=== PATIENT | female | born 1985 | race Caucasian/White ===

== ENCOUNTER → 2019-04-17 21:27 | Observation (INO) ==
[2019-04-17 20:56] LABS: Bilirubin,Urine Negative (Negative); Blood,Urine Negative (Negative); Clarity,Urine Cloudy (Clear); Color,Urine Yellow (Yellow); Glucose,Urine (UA) Normal (Normal); Ketones,Urine Negative (Negative); Leukocyte Esterase,Urine Small (Negative); Nitrite,Urine Negative (Negative); PH,Urine 7.5 pH Units (5.0-8.0); Protein,Urine Negative (Neg-Trace); Specific Gravity,Urine 1.012 (1.010-1.025); Urobilinogen,Urine Normal (Normal)
--- NOTE | 2019-04-17 20:57 | Discharge Summary ---
Date of Encounter: 04/17/19 Time of Encounter: 20:59 - Discharge Diagnosis (1) 27 weeks gestation of Priority: Primary Status: Acute Comments: Admit to observation for complaint of vaginal leakage. (2) Vaginal discharge during Priority: Secondary Status: Acute Comments: Sterile speculum exam completed Vaginosis panel sent to lab [facility] collected Qualifiers: Trimester: third trimester Qualified Code(s): O26.893 - Other specified related conditions, third trimester; N89.8 - Other specified noninflammatory disorders of vagina - Discharge Medications Prescriptions: No Action Mv-Mn/Iron/FA/Herbal/Digestive [ One Tablet] 1 each PO DAILY Home Medications: Mv-Mn/Iron/FA/Herbal/Digestive [ One Tablet] 1 each PO DAILY 04/17/19 [History] Allergies/Adverse Reactions: Allergy/AdvReac Type Severity Reaction Status Date / Time azithromycin Allergy Hives Verified 04/17/19 20:19 Data Procedures and tests throughout hospitalization: Laboratory Tests 04/17/19 20:30 Ur Drug Screen Interp See Below Labs on day of discharge: Labs from last 24 hours 04/17/19 20:30 Ur Drug Screen Interp See Below Date of admission: 04/17/19 20:02 Discharging clinician: Neelam Carlos Anticipated date of discharge: 04/17/19 - Patient Status Disposition: Home, Self-Care Condition: Good Functional capacity at discharge: independent ambulation Overall status at discharge: patient is progressing back to baseline - Discharge Instructions - Diet and Activity Activity: resume usual activities as tolerated Diet: regular diet Hospital Course [facility] Hospital course: Patient arrived with complaint of fluid leakage that ran down her legs and had a pink tinge. States she had used the bathroom and when she stood up she had fluid run down her legs. Denies any fluid leakage or bleeding since that time. Fetus is active and FHR appropriate for gestational age with a baseline of 140 bpm. Patient denies any contractions. States her previous child was delivered at 36 weeks and she had labor beginning at 33 weeks. Cervical length during this has been appropriate. FERN negative and vaginosis panel pending at time of note. Will treat for any positive results. Patient has an appointment with Dr. Tafoya tomorrow morning for routine care. Time Attestation: Total time spent providing and/or coordinating discharge services: Time Spent: Less than 30 minutes Exam - Constitutional General appearance IM: A&O X 3, no acute distress - Respiratory Respiratory exam: Absent: respiratory distress - GI/Abdominal GI/Abdominal exam IM: normal bowel sounds, soft - Rectal Rectal exam: deferred - Extremities Exam Extremities exam IM: Present: normal capillary refill, normal inspection. Absent: calf tenderness - Neurological Exam Neurological exam: alert, normal gait, oriented X3 - VTE Reasons for not Prescribing Prophylaxis: Treatment not Indicated - Low risk for VTE
[2019-04-17 20:58] LABS: Amphetamine Screen,Urine Negative ng/mL (Cutoff=1000); Barbiturate Screen,Urine Negative ng/mL (Cutoff=200); Benzodiazepines Screen,Urine Negative ng/mL (Cutoff=200); Cannabinoid Screen,Urine Negative ng/mL (Cutoff = 50); Cocaine Screen,Urine Negative ng/mL (Cutoff= 300); Opiate Screen,Urine Negative ng/mL (Cutoff=300); Phencyclidine Screen,Urine Negative ng/mL (Cutoff=25)
[2019-04-17 20:59] LABS: Bacteria,Urine Few per hpf (None-Few); Hyaline Casts,Urine None Seen per lpf (None-Few); RBC,Urine 0-3 per hpf (0-3); Squamous Epithelial Cell,Urine Many per lpf (None-Few); WBC,Urine 0-3 per hpf (0-3)
[~2019-04-17 21:27] MED LIST: Ringers Solution, Lactated 1,000 ML IVC SCH
[2019-04-17 22:17] LABS: Candida DNA Not Detected (Not Detect); Gardnerella DNA Not Detected (Not Detect); Trichomonas DNA Not Detected (Not Detect)
== END | disposition home or self-care (01) ==
LOC: 1NENULAB
PROVIDERS: ADMIT Registered Nurse; ATTEND Registered Nurse

== ENCOUNTER → 2019-06-21 22:25 | Observation (INO) | END | disposition home health service (06) | LOC: 1NENULAB | PROVIDERS: ADMIT Registered Nurse; ATTEND Registered Nurse ==

== ENCOUNTER 2019-06-24 23:46 | Inpatient (IN) ==
[2019-06-24 20:05] LABS: Amphetamine Screen,Urine Negative ng/mL (Cutoff=1000); Barbiturate Screen,Urine Negative ng/mL (Cutoff=200); Benzodiazepines Screen,Urine Negative ng/mL (Cutoff=200); Cannabinoid Screen,Urine Negative ng/mL (Cutoff = 50); Cocaine Screen,Urine Negative ng/mL (Cutoff= 300); Opiate Screen,Urine Negative ng/mL (Cutoff=300); Phencyclidine Screen,Urine Negative ng/mL (Cutoff=25)
[~2019-06-24 23:46] MED LIST changes: +*HR* Nalbuphine 10 MG/ML AMPUL IVP PRN; +Famotidine 20 MG/2 ML VIAL IVP PRN; +Lidocaine 1% 20 ML MDV INFILT PRN; +Metoclopramide 10 MG/2 ML VIAL IVP PRN; +Naloxone 0.4 MG/ML INJ IVP PRN; +Ondansetron 4 MG/2 ML VIAL IVP PRN
[2019-06-25 00:23] LABS: Basophils % 0.2 %; Eosinophils # 0.1 K/mcL (0.0-0.6); Eosinophils % 0.7 %; Hematocrit 38.3 % (35.3-44.9); Immature Granulocytes % 0.3 % (0-4); Lymphocytes # 2.3 K/mcL (0.6-4.6); Lymphocytes % 19.5 %; Mean Corpuscular HGB Conc 33.9 g/dL (31.6-35.5); Mean Corpuscular Hemoglobin 29.6 pg (28.0-33.3); Mean Corpuscular Volume 87.2 fL (83.0-100.0); Mean Platelet Volume 12.3 fL (9.4-12.4); Monocytes # 0.5 K/mcL (0.0-1.3); Monocytes % 4.4 %; Neutrophils # 8.6 K/mcL (1.6-8.9); Platelet Count 187 K/mcL (140-400); Red Blood Count 4.39 M/mcL (3.82-4.97); Red Cell Distribution Width 13.5 % (11.5-14.5); Segmented Neutrophils % 74.9 %; White Blood Count 11.5 K/mcL (4.3-11.1)
[2019-06-25] MEDS ORDERED: Epidural Premix (fent/bupiv) 110 ML EP SCH (00:30)
[2019-06-25] MEDS ORDERED: Oxytocin 20 units/ LR 1000 mL 20 UNIT/1,000 ML BAG IVC SCH ×2 (01:45→10:28)
[2019-06-25] MEDS ORDERED: EPHEDrine 50 MG/ML VIAL ONE (02:53)
[2019-06-25] MEDS ORDERED: Ropivacaine/PF 0.2% 20 ML VIAL ONE ×2 (07:41→12:19)
[2019-06-25] MEDS ORDERED: *HR* HYDROcodone/Acet 5/325 mg TABLET PO PRN (10:28)
[2019-06-25] MEDS ORDERED: Benzocaine/Menthol 56 GM AEROSOL SPRAY TP PRN (10:28)
[2019-06-25] MEDS ORDERED: Acetaminophen 325 MG TABLET PO PRN (10:28)
[2019-06-25] MEDS ORDERED: Lanolin 7 G OINT...G. TP PRN (10:28)
[2019-06-25] MEDS ORDERED: Capsaicin 0.025% 60 GM TUBE TP PRN (11:53)
[2019-06-25] MEDS: Ibuprofen 600 MG TABLET PO PRN (12:41)
[2019-06-25] MEDS: Prenatal Vit/FA 1 EACH TABLET PO SCH (13:31)
[2019-06-25] MEDS ORDERED: Carbidopa/Levodopa 25/100 TABLET PO SCH (15:00)
[2019-06-25] MEDS ORDERED: Psyllium 1 PACKET POWD.PACK PO SCH (21:00)
[2019-06-26 07:10] LABS: Basophils % 0.2 %; Eosinophils # 0.1 K/mcL (0.0-0.6); Eosinophils % 1.2 %; Hematocrit 38.1 % (35.3-44.9); Hemoglobin 13.1 g/dL (11.5-15.4); Immature Granulocytes % 0.3 % (0-4); Lymphocytes # 1.8 K/mcL (0.6-4.6); Lymphocytes % 15.2 %; Mean Corpuscular HGB Conc 34.4 g/dL (31.6-35.5); Mean Corpuscular Hemoglobin 29.5 pg (28.0-33.3); Mean Corpuscular Volume 85.8 fL (83.0-100.0); Mean Platelet Volume 11.7 fL (9.4-12.4); Monocytes # 0.6 K/mcL (0.0-1.3); Monocytes % 5.5 %; Platelet Count 168 K/mcL (140-400); Red Blood Count 4.44 M/mcL (3.82-4.97); Red Cell Distribution Width 13.8 % (11.5-14.5); Segmented Neutrophils % 77.6 %; White Blood Count 11.6 K/mcL (4.3-11.1)
[2019-06-26] MEDS: Prenatal Vit/FA 1 EACH TABLET PO SCH (08:11)
[2019-06-26] MEDS: Ibuprofen 600 MG TABLET PO PRN ×2 (08:11→20:08)
[2019-06-27 07:53] VITALS: BP 112/72
[2019-06-27] MEDS: Ibuprofen 600 MG TABLET PO PRN (08:35)
[2019-06-27] MEDS: Prenatal Vit/FA 1 EACH TABLET PO SCH (08:35)
== END 2019-06-27 19:14 | disposition home or self-care (01) | DRG 560 ==
LOC: 1NENULAB → 1NENUOBS 06-25 10:30
PROVIDERS: ADMIT Advanced Practice Midwife; ATTEND Advanced Practice Midwife